=== PATIENT | female | born 1990 | race African-American/Black ===

== ENCOUNTER 2024-07-25 23:13 | Emergency (ER) | payer OTHER, SELFPAY ==
[2024-07-25 23:18] VITALS: BP 173/117; BMI 37.1
[2024-07-25] MEDS: APRESOLINE 10 MG IV (23:37)
[2024-07-25] MEDS: ZESTRIL 10 MG PO (23:37)
[2024-07-25 23:42] VITALS: BP 156/100
[2024-07-25 23:45] LABS: % Basophils 0.5 % (0-2); % Eosinophils 4.3 % (0-6); % Immature Granulocytes 3.9 % (0-0.5); % Lymphocytes 17.2 % (20.5-51.1); % Monocytes 7.5 % (1.7-9.3); % Neutrophils 66.6 % (42.2-75.2); Absolute Basophils 0.1 10^3/uL (0-0.2); Absolute Eosinophils 0.6 10^3/uL (0-0.7); Absolute Immature Granulocytes 0.6 10^3/uL (0-0.05); Absolute Lymphocytes 2.6 10^3/uL (1.2-3.4); Absolute Monocytes 1.1 10^3/uL (0.1-0.6); Hematocrit 28.9 % (37.0-47.0); Hemoglobin 9.8 g/dL (12.0-16.0); Mean Corp Hgb Conc. 33.9 g/dL (33.0-37.0); Mean Corpuscular Hgb 29.8 pg (27.0-31.0); Mean Corpuscular Volume 87.8 fL (81.0-99.0); Mean Platelet Volume 8.8 fL (7.4-10.4); Nucleated Red Blood Cells % 1.4 %; Platelet Count 447 10^3/uL (130-400); Red Blood Cell Count 3.29 10^6/uL (4.20-5.40); Red Cell Dist. Width 18.3 % (11.5-14.5)
--- NOTE | 2024-07-25 23:48 | ED.GENMED ---
History of Present Illness
General
Chief Complaint: Blood Pressure Problem
Source: patient, records (From [facility] have been reviewed briefly) and family
Exam Limitations: altered mental status
Time Seen by Provider: 07/25/24 23:24
History of Present Illness
History of Present Illness:
34-year-old female week after 25 to 28 weeks at [facility] just discharged few days ago on blood pressure meds feeling weak today, apparently did not have any blood pressure meds today triage note says that she is post to be on lisinopril
every 6, believe this is an error was able to access the [facility] EMR, she has been prescribed nifedipine 60 XL 1 twice daily and labetalol 600 p.o. every 8
She apparently breast-feeding baby is still at [facility]
Patient apparently received a blood transfusion at [facility] she had developed help syndrome, LFTs normalized prior to discharge,
Past History
Past History
ED Past Medical History: HTN and Other (Preeclampsia)
Social History
Living: with family
Review of Systems
Review of Systems
All Other Systems: Not applicable
Constitutional: Reports fatigue
EENT: Reports no symptoms
Respiratory: Reports no symptoms
Cardiac: Reports no symptoms
ABD/GI: Reports no symptoms
Neurological: Reports dizzy
Hematologic/Lymphatic: Reports no symptoms
Phy Exam
Physical Exam
Physical Exam:
Physical Exam
General: 34 female hypertensive, opens eyes to voice, speaking on the phone with her mother
Neck: No jaundice
Heart: Regular
Lungs: No
Abdomen: Nontender
Neuro: alert and oriented moves moves all extremities
Skin: no rash
Psychiatric: cooperative
Extremities: Trace edema no calf
Course
Orders/Labs/Results
Orders:
Orders
07/25/24 23:17
Electrocardiogram (*1) Urgent
Reason for Study: Vertigo / Dizzy
EKG- Treatment ONCE
Test Result ONCE
07/25/24 23:25
Complete Blood Count/With Diff Urgent
Comprehensive Metabolic Panel Urgent
HCG, Serum Qualitative Screen Urgent
NT-proBNP Urgent
Comment: ADD ON,RUN ON SERUM
Uric Acid Urgent
Urinalysis Reflex To Culture Urgent
Date Specimen was Collected: 07/26/24
Time Specimen was Collected: 00:30
07/25/24 23:27
HydrALAZINE [Apresoline] 10 mg IV NOW STA
07/25/24 23:28
Lisinopril [Zestril] 10 mg PO NOW STA
07/25/24 23:59
Add On- LAB Urgent
Tests Added?: pBNP
07/26/24 00:00
CR Chest Portable - 1 View Urgent
Comment:
Reason For Exam: sob
Reason Study Needs to be Portable: Patient Unstable
07/26/24 00:34
Urine Microscopic Reflex Cult Urgent
Urine Culture Urgent
MARYANN Source: U
Specimen Description:
Date Specimen was Collected: 07/26/24
Time Specimen was Collected: 00:30
07/26/24 01:01
ABG [Arterial Blood Gas] Urgent
%Oxygen/Room Air: ra
07/26/24 01:14
NIFEdipine EXTENDED RELEASE [Procardia Xl (Extended Release)] 60 mg PO NOW STA
07/26/24 01:18
Labetalol [Trandate] 600 mg PO NOW STA
07/26/24 01:26
0.9% Sodium Chloride 500 ml [Nss] 500 ml IV BOLUS
Abnormal Lab Results
07/25/24 07/26/24 07/26/24
23:25 00:34 01:01
WBC 15.0 H 10^3/uL
(4.8-10.8)
RBC 3.29 L 10^6/uL
(4.20-5.40)
Hgb 9.8 L g/dL
(12.0-16.0)
Hct 28.9 L %
(37.0-47.0)
RDW 18.3 H %
(11.5-14.5)
Plt Count 447 H 10^3/uL
(130-400)
Abs Immat Gran (auto) 0.6 H 10^3/uL
(0-0.05)
Absolute Neuts (auto) 10.0 H 10^3/uL
(1.4-6.5)
Absolute Monos (auto) 1.1 H 10^3/uL
(0.1-0.6)
Immature Gran % 3.9 H %
(0-0.5)
Lymphocytes % 17.2 L %
(20.5-51.1)
pH 7.48 H
(7.35-7.45)
pCO2 36 H mmHg
(32-35)
ABG O2 Sat (Measured) 99.1 H %
(94-98)
Uric Acid 6.9 H mg/dl
(2.5-6.2)
AST 44 H U/L
(14-36)
Ur Occult Blood Reflex 1+ A
(Negative)
Leukocyte Esterase Rfl 2+ A
(Negative)
Urine RBC 3-6 A /HPF
(0-2)
Urine WBC (Reflex) >100 A /HPF
(0-5)
Urine Bacteria (Reflex) Many A
(Negative)
07/25/24 23:25
07/25/24 23:25
Vital Signs
Initial and Last Documented VS:
Initial Vital Signs
Temp Pulse Resp BP Pulse Ox
98.2 F 103 16 173/117 99
07/25/24 23:18 07/25/24 23:18 07/25/24 23:18 07/25/24 23:18 07/25/24 23:18
Last Documented Vital Signs
Temp Pulse Resp BP Pulse Ox
98.2 F 107 35 138/85 99
07/25/24 23:18 07/26/24 01:30 07/26/24 01:30 07/26/24 01:30 07/26/24 01:30
MDM/Problems Addressed
Differential Diagnosis Includes:
hypertension chronic hypertension eclampsia,
MDM/Problems Addressed:
Hypertension
Chronic conditions affecting care:
Hypertension
Acute Exacerbation and/or Progression of Chronic Illness:
Hypertension
*Critical Care Note
Total Time (30-74mins, 75-104mins- exclusive of procedures): Not Applicable
Update Note
Update Note:
Update blood pressure improving will add proBNP and chest x-ray
Update proBNP and chest x-ray noted
1:30 AM blood pressure improved patient feeling better though she does states she feels dehydrated she is awake alert tired she has full prescription bottles of her medications unclear why she did not take it earlier today
Encouraged her to take her meds as prescribed
ED Attending Note
-
Portions of this chart may have been created with voice recognition software.� Occasional wrong word or��sound alike� substitutions may have occurred due to the inherent limitations of voice recognition software.
Discharge Plan
Departure
Patient Disposition: Home (Routine Discharge)
Date of Disposition: 07/26/24
Time of Disposition: 01:25
Patient with high blood pressure during this ER visit?: Yes
Condition: Good
Covid-19: Not Applicable
Discharge Problem:
Hypertension affecting , antepartum
Instructions: High Blood Pressure (DC)
Prescriptions:
No Action
nifedipine 60 mg Tablet Extended Release 24hr
60 mg PO BID
docusate sodium [Colace] 100 mg Capsule
100 mg PO BID
labetalol 300 mg Tablet
600 mg PO Q8H
oxycodone 5 mg Tablet
5 mg PO Q4HPRN PRN (Reason: severe pain)
Patient Comments:
07/25/24: last filled 07/21/24 for 10 tablets over 2 days
Referrals:
UNKNOWN - PT DOES,NOT KNOW [Family Provider] -
Activity Restrictions/Additional Instructions:
Take your medications as prescribed follow-up with your physicians at [facility]
Interventions
Interventions:
*Risk Screen - Suicide Last Done: 07/25/24 23:18
*General Assessment Last Done: 07/25/24 23:18
*Neglect/Abuse Screening Last Done: 07/25/24 23:18
*ED COVID-19 Vaccine History Last Done: 07/25/24 23:18
*Nursing Disposition Last Done: 07/26/24 02:24
ED- Cardiac Assessment Last Done: 07/25/24 23:24
ED- Neurological Assessment Last Done: 07/25/24 23:24
ED- Pulmonary Assessment Last Done: 07/25/24 23:24
Discharge Date and Time
Discharge Date/Time: 07/26/24 02:24
Print Language: [id number]
[2024-07-25 23:57] LABS: HCG, Serum Qualitative Screen Positive
[2024-07-26] VITALS: BP 144/89
[2024-07-26] LABS: ALT (SGPT) 32 U/L (0-35); AST (SGOT) 44 U/L (14-36); Albumin 4.3 g/dl (3.5-5.0); Alkaline Phosphatase 85 U/L (38-126); Blood Urea Nitrogen 16 mg/dl (7-17); Carbon Dioxide 29 mmol/L (22-30); Chloride 104 mmol/L (98-107); Estimated Creatinine Clearance 97 ml/min; Glucose 95 mg/dl (70-99); Potassium 4.7 mmol/L (3.5-5.1); Sodium 142 mmol/L (135-145); Total Bilirubin 0.6 mg/dl (0.2-1.3); Total Protein 7.2 g/dl (6.3-8.2); Uric Acid 6.9 mg/dl (2.5-6.2); eGFR > 60.00
[2024-07-26 00:21] LABS: NT-proBNP 108 pg/ml
[2024-07-26 00:39] VITALS: BP 132/93
[2024-07-26 00:47] LABS: Urine Albumin Negative (Neg - Trace); Urine Bilirubin Negative (Negative); Urine Character Slightly Cloudy (Clear); Urine Color Yellow; Urine Glucose Negative (Negative); Urine Ketone Negative (Negative); Urine Leukocyte 2+ (Negative); Urine Nitrite Negative (Negative); Urine Occult Blood 1+ (Negative); Urine Specific Gravity 1.015 (<1.030); Urine Urobilinogen Negative (Neg - 1+)
[2024-07-26 01:08] LABS: B.E. 3.2 mmol/L; HCO3 26.8 mmol/L (21-28); O2 Saturation % 99.1 % (94-98); PCO2 36 mmHg (32-35); PO2 95 mmHg (83-108); pH 7.48 (7.35-7.45)
[2024-07-26 01:13] LABS: Urine Bacteria Many (Negative); Urine Squamous Cell >30 /LPF (Few); Urine Urothelial Cell >30 /LPF (FEW); Urine White Cell >100 /HPF (0-5)
[2024-07-26 01:20] VITALS: BP 139/93
[2024-07-26] MEDS: NSS 500 IV (01:26)
[2024-07-26 01:30] VITALS: BP 138/85
== END 2024-07-26 02:24 | disposition home or self-care (01) ==
LOC: EMR 23:13
PROVIDERS: Emergency Medicine; EMERGENCY PHYSICIAN Emergency Medicine
DX: O16.5 Unspecified maternal hypertension, complicating the puerperium (principal)
CPT/HCPCS: 96374; 99284; 71045; 80053; 81003; 81015; 82805; 83880; 84550; 84703; 85025; 87086; 93005